=== PATIENT | female | born 1970 | race Caucasian/White ===

== ENCOUNTER 2020-03-31 05:37 | Day surgery (SDC) | payer OTHER ==
[2020-03-29 14:45] VITALS: BMI 27.8
[2020-03-31] MEDS ORDERED: PROPOFOL 20 ML ONE ×3 (08:02→08:10)
[2020-03-31] MEDS ORDERED: MIDAZOLAM HCL 2 MG/2 ML SINGLE DOSE VIAL ONE (08:03)
[2020-03-31] MEDS ORDERED: SUCCINYLCHOLINE CHLORIDE 200 MG/10 ML SYRINGE ONE (08:11)
[2020-03-31] MEDS ORDERED: ceFAZolin SODIUM 1 GM VIAL IVPB ONE (08:20)
[2020-03-31] MEDS ORDERED: BUPIVACAINE HCL/PF 0.5% (5 MG/ML) 30 ML VIAL IJ ONE (08:43)
[2020-03-31] MEDS ORDERED: PROMETHAZINE HCL 25 MG/1 ML VIAL IVPB PRN (09:08)
[2020-03-31] MEDS ORDERED: ONDANSETRON 4 MG/2 ML VIAL IVPUSH PRN (09:08)
[2020-03-31] MEDS ORDERED: oxyCODONE HCL 5 MG TABLET PO PRN (09:08)
[2020-03-31] MEDS ORDERED: ONDANSETRON 4 MG/2 ML VIAL IVPUSH ONE (09:26)
[2020-03-31] MEDS ORDERED: oxyCODONE HCL 5 MG TABLET ONE (11:34)
[2020-03-31 15:20] VITALS: TEMP 97.8
[2020-03-31 15:51] VITALS: BP 130/70; PULSE 70
== END 2020-03-31 14:00 | disposition home or self-care (01) ==
LOC: JASU-SURG 05:37
PROVIDERS: ATTEND Orthopaedic Surgery
PROC: 0SBC4ZZ Excision of Right Knee Joint, Percutaneous Endoscopic Approach (ICD-10-PCS; principal; 2020-03-31 08:00)
DX: S83.231A Complex tear of medial meniscus, current injury, right knee, initial encounter (principal); M17.11 Unilateral primary osteoarthritis, right knee; X58.XXXA Exposure to other specified factors, initial encounter; Y93.9 Activity, unspecified; Y92.9 Unspecified place or not applicable; Y99.9 Unspecified external cause status
CPT/HCPCS: 84703; 88304-TC; 94760